=== PATIENT | female | born 1945 | race Caucasian/White ===

== ENCOUNTER 2017-11-15 19:27 | Inpatient (IN) | payer MEDICARE ==
[~2017-11-15] VITALS: Ht 157.5 cm; Wt 70.0 kg
[~2017-11-15 19:27] MED LIST: IBUP600T26 PO; METO25 PO; PRAV20 PO; TIMO0.5S7
[2017-11-15 19:37] VITALS: BP 149/63; PULSE 66; RESP 18; TEMP 98.4; O2SAT 99
[2017-11-15] MEDS ORDERED: PRAV20TA2 PO (19:45)
[2017-11-15] MEDS ORDERED: TIMO0.5S30 EACH EYE (19:45)
[2017-11-15] MEDS ORDERED: COQ-50CA2 PO (19:45)
[2017-11-15] MEDS ORDERED: METO25TA3 PO (19:45)
[2017-11-15] MEDS ORDERED: HYDROmorphone HCL PF 2 MG/ML VIAL IV PUSH ONE (19:45)
[2017-11-15] MEDS ORDERED: ONDANSETRON ODT 4 MG TAB PO ONE (19:45)
--- NOTE | 2017-11-15 20:41 | RADRPT ---
EXAM DATE: 11/15/2017 8:31 PM EDT AGE/SEX: 72 years / Female INDICATIONS: Left medial foot pain after fall. CLINICAL DATA: This is the patient's initial encounter. Patient reports that signs and symptoms have been present for 1 day and indicates a pain score of 7/10. MEDICAL/SURGICAL HISTORY: None. None. COMPARISON: No prior exams available for comparison. FINDINGS: There is a minimally displaced fracture through the base of the fifth metatarsal. No dislocation. No other fractures identified. CONCLUSION: Minimally displaced fracture through the base of the fifth metatarsal. Electronically signed by: Kenny Barry MD 11/15/2017 8:39 PM EDT
--- NOTE | 2017-11-15 20:42 | RADRPT ---
EXAM DATE: 11/15/2017 8:32 PM EDT AGE/SEX: 72 years / Female INDICATIONS: Right anterior knee pain after fall. CLINICAL DATA: This is the patient's initial encounter. Patient reports that signs and symptoms have been present for 1 day and indicates a pain score of 10/10. MEDICAL/SURGICAL HISTORY: None. None. COMPARISON: No prior exams available for comparison. FINDINGS: There is a comminuted fracture of the upper patella with mild displacement. Positive knee joint effus ion. No other fractures identified. CONCLUSION: Comminuted patellar fracture with joint effusion. Electronically signed by: Kenny Barry MD 11/15/2017 8:40 PM EDT
--- NOTE | 2017-11-15 21:02 | PD ---
HPI Chief Complaint: Fall Time Seen by Provider: 19:39 Travel History International Travel<30 days: No Contact w/Intl Traveler<30days: No Traveled to known affect area: No History of Present Illness HPI Is a 72-year-old woman presents emerged department after trip and fall. States she tripped over a parking curb and fell onto her right knee. She is severe pain in her right knee and some pain in her left foot as well. Denies hitting her head. No neck pain. She otherwise has been feeling generally well and healthy. She is a history of SVT, is on metoprolol. She is a history of hyperlipidemia. Otherwise has been feeling generally well and healthy. No other complaints. History Past Medical History Narrative Medical SVT, metoprolol Hyperlipidemia Tetanus Vaccination: < 5 Years Influenza Vaccination: Yes Menopausal: Yes Social History Alcohol Use: Yes (WINE 4 TIMES A WEEK) Tobacco Use: No Allergies-Medications (Allergen,Severity, Reaction): Coded Allergies: codeine (Unverified Allergy, Severe, RAPID PULSE, 01/12/17) latex (Unverified Allergy, Severe, Hives, 01/12/17) morphine (Unverified Allergy, Unknown, 01/12/17) Reported Meds & Prescriptions Reported Meds & Active Scripts Active Reported Coq-10 (Coenzyme Q10 (Ubidecarenone)) 50 Mg Cap 100 Mg PO Timolol Opth Drops 0.5 % Soln 1 Drop EACH EYE BID Metoprolol Tartrate 25 Mg Tab 25 Mg PO BID Pravastatin 20 Mg Tab 20 Mg PO DAILY Review of Systems Except as stated in HPI: all other systems reviewed are Neg Physical Exam Narrative GENERAL: Well-appearing 72-year-old woman, no acute distress. SKIN: Warm and dry. HEENT: No evidence of trauma. Normocephalic. Neck: Full range of motion. No tenderness. CARDIOVASCULAR: Warm and well perfused. RESPIRATORY: Normal rate and effort. MUSCULOSKELETAL: Examination of the right lower extremity reveals pain and tenderness over the anterior right knee. Pain with any range of motion. A little bit of pain laterally on the knee. Some swelling on the anterior knee, no definite effusion. Distally she is neurovascularly intact. Focused examination the left lower extremity reveals a little bit tenderness in the lateral no significant ecchymosis swelling bruising or deformity there. NEUROLOGICAL: Awake and alert. No gross deficits. Data Data Last Documented VS Vital Signs Date Time Temp Pulse Resp B/P (MAP) Pulse Ox O2 Delivery O2 Flow Rate FiO2 11/15/17 19:37 98.4 66 18 149/63 (91) 99 Orders Orders Foot, Complete ([id number]) (11/15/17 ) Hydromorphone Pf Inj (Dilaudid Pf Inj) (11/15/17 19:45) Ondansetron Odt (Zofran Odt) (11/15/17 19:45) Knee, Ltd (1 Or 2vws) (11/15/17 ) Complete Blood Count With Diff (11/15/17 21:10) Comprehensive Metabolic Panel (11/15/17 21:10) Iv Access Insert/Monitor (11/15/17 21:10) Admit Order (Ed Use Only) (11/15/17 ) Consult Orthopedic (11/15/17 ) [facility] Medical Decision Making Medical Screen Exam Complete: Yes Emergency Medical Condition: Yes Interpretation(s) X-ray right knee: Comminuted patellar fracture with some effusion. X-ray left foot: Proximal base of the fifth metatarsal fracture. Differential Diagnosis Fracture, contusion, strain or sprain, other Narrative Course Medical decision making 72-year-old woman who presents to the emergency department complaining of pain in the right knee after a fall. She is a lot of deformity and tenderness or swelling there. Concern for fracture. A little bit tenderness in the foot. X- ray shows a fracture the base of the fifth metatarsal, as well as a fracture of the patella is pretty comminuted. She is unable to hold the ankle up off the bed against gravity, possibly due to pain, possibly due to disruption. Physician Communication Physician Communication Spoke with Dr. Elder RODRÍGUEZ, will consult on patient. N.p.o. after midnight. Spoke with Dr. Cueto, will admit patient. Diagnosis Primary Impression: Fracture of fifth metatarsal bone of right foot Qualified Codes: S92.354A - Nondisplaced fracture of fifth metatarsal bone, right foot, initial encounter for closed fracture Additional Impression: Comminuted fracture of right patella Admitting Information Admitting Physician Requests: Admit Joseph Jackson MD Nov 15, 2017 21:02
[2017-11-15 22:02] LABS: AUTOMATED NEUTROPHIL # 9.8 TH/MM3 (1.8-7.7); BASOPHIL % 0.2 % (0.0-2.0); EOSINOPHIL # 0.1 TH/MM3 (0-0.4); EOSINOPHIL % 0.5 % (0.0-4.0); HEMATOCRIT 40.4 % (35.0-46.0); HEMOGLOBIN 13.5 GM/DL (11.6-15.3); LYMPH % 15.7 % (9.0-44.0); MEAN CELL VOLUME 88.9 FL (80.0-100.0); MEAN CORPUSCULAR HEMOGLOBIN 29.7 PG (27.0-34.0); MEAN CORPUSCULAR HGB CONC 33.4 % (32.0-36.0); MEAN PLATELET VOLUME 8.3 FL (7.0-11.0); MONO % 6.3 % (0.0-8.0); MONOCYTE # 0.8 TH/MM3 (0-0.9); NEUT % 77.3 % (16.0-70.0); PLATELET COUNT 282 TH/MM3 (150-450); RED BLOOD COUNT 4.55 MIL/MM3 (4.00-5.30); RED CELL DISTRIBUTION WIDTH 13.2 % (11.6-17.2); WHITE BLOOD COUNT 12.6 TH/MM3 (4.0-11.0)
--- NOTE | 2017-11-15 22:13 | HHI.HP ---
HPI Service [facility] Hospitalists Primary Care Physician Tahir Monahan MD Admission Diagnosis Comminuted patellar fracture, metatarsal fracture Chief Complaint: fall with fracture Travel History International Travel<30 Days: No Contact w/Intl Traveler <30 Da: No Traveled to Known Affected Are: No History of Present Illness Is a 72-year-old woman presents emerged department after trip and fall. States she tripped over a parking curb and fell onto her right knee. She is severe pain in her right knee and some pain in her left foot as well. Denies hitting her head. No neck pain. She otherwise has been feeling generally well and healthy. She is a history of SVT, is on metoprolol. She is a history of hyperlipidemia. Otherwise has been feeling generally well and healthy. No other complaints . Xrays show rt patella fracture and 5th metatarsal fracture admit. Review of Systems Musculoskeletal: COMPLAINS OF: Joint pain Past Family Social History Past Medical History SVT ,hyperlipidemia Reported Medications metoprolol 25 bid,pravachol eye drops coq 10 Allergies: Coded Allergies: codeine (Unverified Allergy, Severe, RAPID PULSE, 01/12/17) latex (Unverified Allergy, Severe, Hives, 01/12/17) morphine (Unverified Allergy, Unknown, 01/12/17) Social History NS occasional etoh Physical Exam Vital Signs Vital Signs Date Time Temp Pulse Resp B/P (MAP) Pulse Ox O2 Delivery O2 Flow Rate FiO2 11/15/17 19:37 98.4 66 18 149/63 (91) 99 Physical Exam GENERAL: This is a well-nourished, well-developed patient, in no apparent distress. SKIN: No rashes, ecchymoses or lesions. Cool and dry. HEAD: Atraumatic. Normocephalic. No temporal or scalp tenderness. EYES: Pupils equal round and reactive. Extraocular motions intact. No scleral icterus. No injection or drainage. ENT: Nose without bleeding, purulent drainage or septal hematoma. Throat without erythema, tonsillar hypertrophy or exudate. Uvula midline. Airway patent. NECK: Trachea midline. No JVD or lymphadenopathy. Supple, nontender, no meningeal signs. CARDIOVASCULAR: Regular rate and rhythm without murmurs, gallops, or rubs. RESPIRATORY: Clear to auscultation. Breath sounds equal bilaterally. No wheezes , rales, or rhonchi. GASTROINTESTINAL: Abdomen soft, non-tender, nondistended. No hepato-splenomegaly , or palpable masses. No guarding. MUSCULOSKELETAL: Extremities without clubbing, cyanosis, or edema. Pain and tenderness anterior rt knee with movement and pain rt foot NEUROLOGICAL: Awake and alert. Cranial nerves II through XII intact. Motor and sensory grossly within normal limits. Five out of 5 muscle strength in all muscle groups. Normal speech. Laboratory Laboratory Tests Test 11/15/17 21:55 White Blood Count 12.6 Red Blood Count 4.55 Hemoglobin 13.5 Hematocrit 40.4 Mean Corpuscular Volume 88.9 Mean Corpuscular Hemoglobin 29.7 Mean Corpuscular Hemoglobin Concent 33.4 Red Cell Distribution Width 13.2 Platelet Count 282 Mean Platelet Volume 8.3 Neutrophils (%) (Auto) 77.3 Lymphocytes (%) (Auto) 15.7 Monocytes (%) (Auto) 6.3 Eosinophils (%) (Auto) 0.5 Basophils (%) (Auto) 0.2 Neutrophils # (Auto) 9.8 Lymphocytes # (Auto) 2.0 Monocytes # (Auto) 0.8 Eosinophils # (Auto) 0.1 Basophils # (Auto) 0.0 CBC Comment DIFF FINAL Differential Comment Result Diagram: 11/15/175 Imaging Last 24 hours Impressions Knee X-Ray 11/15/17 0000 Signed Impressions: CONCLUSION: Comminuted patellar fracture with joint effusion. Foot X-Ray 11/15/17 0000 Signed Impressions: CONCLUSION: Minimally displaced fracture through the base of the fifth metatarsal. Caprini VTE Risk Assessment Caprini VTE Risk Assessment: No/Low Risk (score <= 1) Caprini Risk Assessment Model Point Value = 1 Point Value = 2 Point Value = 3 Point Value = 5 Age 41-60 Minor surgery BMI > 25 kg/m2 Swollen legs Varicose veins or History of unexplained or recurrent spontaneous Oral contraceptives or hormone replacement Sepsis (< 1 month) Serious lung disease, including pneumonia (< 1 month) Abnormal pulmonary function Acute myocardial infarction Congestive heart failure (< 1 month) History of inflammatory bowel disease Medical patient at bed rest Age 61-74 Arthroscopic surgery Major open surgery (> 45 min) Laparoscopic surgery (> 45 min) Malignancy Confined to bed (> 72 hours) Immobilizing plaster cast Central venous access Age >= 75 History of VTE Family history of VTE Factor V Leiden Prothrombin [id number] Lupus anticoagulant Anticardiolipin antibodies Elevated serum homocysteine Heparin-induced thrombocytopenia Other congenital or acquired thrombophilia Stroke (< 1 month) Elective arthroplasty Hip, pelvis, or leg fracture Acute spinal cord injury (< 1 month) Prophylaxis Regimen Total Risk Factor Score Risk Level Prophylaxis Regimen 0-1 Low Early ambulation 2 Moderate Order ONE of the following: *Sequential Compression Device (SCD) *Heparin 5000 units SQ BID 3-4 Higher Order ONE of the following medications: *Heparin 5000 units SQ TID *Enoxaparin/Lovenox 40 mg SQ daily (WT < 150 kg, CrCl > 30 mL/min) *Enoxaparin/Lovenox 30 mg SQ daily (WT < 150 kg, CrCl > 10-29 mL/min) *Enoxaparin/Lovenox 30 mg SQ BID (WT < 150 kg, CrCl > 30 mL/min) AND/OR *Sequential Compression Device (SCD) 5 or more Highest Order ONE of the following medications: *Heparin 5000 units SQ TID (Preferred with Epidurals) *Enoxaparin/Lovenox 40 mg SQ daily (WT < 150 kg, CrCl > 30 mL/min) *Enoxaparin/Lovenox 30 mg SQ daily (WT < 150 kg, CrCl > 10-29 mL/min) *Enoxaparin/Lovenox 30 mg SQ BID (WT < 150 kg, CrCl > 30 mL/min) AND *Sequential Compression Device (SCD) Assessment and Plan Problem List: (1) Comminuted fracture of right patella ICD Codes: S82.041A - Displaced comminuted fracture of right patella, initial encounter for closed fracture Status: Acute Plan: admit pain meds consult ortho (2) Fracture of fifth metatarsal bone of right foot ICD Codes: S92.351A - Displaced fracture of fifth metatarsal bone, right foot, initial encounter for closed fracture Status: Acute Plan: ortho consulted (3) Hyperlipemia ICD Codes: E78.5 - Hyperlipidemia, unspecified Plan: continue statin (4) SVT (supraventricular tachycardia) ICD Codes: I47.1 - Supraventricular tachycardia Plan: continue metoprolol Assessment and Plan further plan as case develops Code Status full Discussed Condition With patient Physician Certification 2 Midnight Certification Type: Admission for Inpatient Services Order for Inpatient Services The services are ordered in accordance with Medicare regulations or non- Medicare payer requirements, as applicable. In the case of services not specified as inpatient-only, they are appropriately provided as inpatient services in accordance with the 2-midnight benchmark. Estimated LOS (days): 3 3 days is the estimated time the patient will need to remain in the hospital, assuming treatment plan goals are met and no additional complications. Post-Hospital Plan: Not yet determined Problem Qualifiers (1) Fracture of fifth metatarsal bone of right foot: Qualified Codes: S92.354A - Nondisplaced fracture of fifth metatarsal bone, right foot, initial encounter for closed fracture Robert Cueto MD Nov 15, 2017 22:13
[2017-11-15] MEDS ORDERED: MAGNESIUM HYDROXIDE SUSP 30 ML CUP PO PRN (22:15)
[2017-11-15] MEDS ORDERED: MORPHINE SULFATE 2 MG/ML SYRINGE IV PUSH PRN (22:15)
[2017-11-15] MEDS ORDERED: NALOXONE HCL 0.4 MG/ML AMP IV PUSH PRN (22:15)
[2017-11-15] MEDS ORDERED: LACTULOSE SYRUP 20 GM/30 ML CUP PO PRN (22:15)
[2017-11-15] MEDS ORDERED: SENNOSIDES 8.6 MG TAB PO PRN (22:15)
[2017-11-15] MEDS ORDERED: BISACODYL 10 MG SUPP RECTAL PRN (22:15)
[2017-11-15] MEDS ORDERED: SODIUM CHLORIDE 0.9% FLUSH 10 ML FLUSH IV FLUSH PRN (22:15)
[2017-11-15 22:24] LABS: ALBUMIN 3.8 GM/DL (3.4-5.0); ALT (GPT) 40 U/L (10-53); AST (GOT) 58 U/L (15-37); BICARBONATE 26.1 MEQ/L (21.0-32.0); BLOOD UREA NITROGEN 20 MG/DL (7-18); CALCIUM 9.4 MG/DL (8.5-10.1); CHLORIDE 106 MEQ/L (98-107); CREATININE 0.93 MG/DL (0.50-1.00); GLOMERULAR FILTRATION RATE 59 ML/MIN (>89); GLUCOSE,RANDOM 109 MG/DL (74-106); SODIUM (NA) 141 MEQ/L (136-145)
[2017-11-15 22:26] LABS: ALKALINE PHOSPHATASE 85 U/L (45-117); TOTAL BILIRUBIN ADULT 0.4 MG/DL (0.2-1.0); TOTAL PROTEIN 6.9 GM/DL (6.4-8.2)
[2017-11-15] MEDS ORDERED: HYDROmorphone HCL PF 1 MG/ML VIAL IV PUSH PRN (22:30)
[2017-11-15 22:32] VITALS: BP 123/58; PULSE 74; RESP 16; O2SAT 98
[2017-11-16] VITALS (9 sets, daily range): BP systolic 106–128; BP diastolic 53–59; PULSE 62–81; RESP 16–18; TEMP 97.5–98.7; O2SAT 95–100
[2017-11-16] MEDS: HYDROmorphone HCL PF 2 MG/ML VIAL IV PUSH PRN ×5 (00:23→23:22)
--- NOTE | 2017-11-16 08:04 | HHI.PR ---
Subjective Remarks Pt reports that her pain is controlled currently She notes that she has not urinated since 1700 yesterday evening Denies any nausea/vomiting Objective Vitals Vital Signs Date Time Temp Pulse Resp B/P (MAP) Pulse Ox O2 Delivery O2 Flow Rate FiO2 11/16/17 07:23 65 11/16/17 04:23 65 11/16/17 03:52 98.2 81 16 116/58 (77) 95 11/16/17 00:17 98.7 74 16 128/59 (82) 100 11/15/17 23:36 11/15/17 22:32 74 16 123/58 (79) 98 Room Air 11/15/17 19:37 98.4 66 18 149/63 (91) 99 Result Diagram: 11/15/17215411/15/172154 Other Results Laboratory Tests Test 11/15/17 21:55 White Blood Count 12.6 TH/MM3 Red Blood Count 4.55 MIL/MM3 Hemoglobin 13.5 GM/DL Hematocrit 40.4 % Mean Corpuscular Volume 88.9 FL Mean Corpuscular Hemoglobin 29.7 PG Mean Corpuscular Hemoglobin Concent 33.4 % Red Cell Distribution Width 13.2 % Platelet Count 282 TH/MM3 Mean Platelet Volume 8.3 FL Neutrophils (%) (Auto) 77.3 % Lymphocytes (%) (Auto) 15.7 % Monocytes (%) (Auto) 6.3 % Eosinophils (%) (Auto) 0.5 % Basophils (%) (Auto) 0.2 % Neutrophils # (Auto) 9.8 TH/MM3 Lymphocytes # (Auto) 2.0 TH/MM3 Monocytes # (Auto) 0.8 TH/MM3 Eosinophils # (Auto) 0.1 TH/MM3 Basophils # (Auto) 0.0 TH/MM3 CBC Comment DIFF FINAL Differential Comment Blood Urea Nitrogen 20 MG/DL Creatinine 0.93 MG/DL Random Glucose 109 MG/DL Total Protein 6.9 GM/DL Albumin 3.8 GM/DL Calcium Level 9.4 MG/DL Alkaline Phosphatase 85 U/L Aspartate Amino Transf (AST/SGOT) 58 U/L Alanine Aminotransferase (ALT/SGPT) 40 U/L Total Bilirubin 0.4 MG/DL Sodium Level 141 MEQ/L Potassium Level 3.8 MEQ/L Chloride Level 106 MEQ/L Carbon Dioxide Level 26.1 MEQ/L Anion Gap 9 MEQ/L Estimat Glomerular Filtration Rate 59 ML/MIN Imaging Last 24 hours Impressions Knee X-Ray 11/15/17 0000 Signed Impressions: CONCLUSION: Comminuted patellar fracture with joint effusion. Foot X-Ray 11/15/17 0000 Signed Impressions: CONCLUSION: Minimally displaced fracture through the base of the fifth metatarsal. Objective Remarks General: NAD, AAOx3 Chest: CTA Cardiac: Regular Abd: +BS, soft ND, suprapubic distension and tenderness Ext: RLE knee immobilizer in place, no swelling A/P Problem List: (1) Comminuted fracture of right patella ICD Codes: S82.041A - Displaced comminuted fracture of right patella, initial encounter for closed fracture Status: Acute Plan: Comminuted right patellar fracture Left foot 5th metatarsal fracture - Pt is a 72 y/o female with SVT, Hyperlipidemia, GERD, gastroparesis, and fibromyalgia who presented to the ED after trip and fall. She had tripped over a parking curb and fell onto her right knee. - Imaging studies at admission revealed a right comminuted patellar fracture with joint effusion and a left foot minimally displaced fracture through the base of the fifth metatarsal. - Ortho was consulted at admission - Pt is planned for surgical intervention this afternoon - NPO - IVF - Bladder scan and if retaining then place [facility] cath - Pain control with Dilaudid IV - Constipation precautions - Supportive care (2) Fracture of fifth metatarsal bone of left foot ICD Codes: S92.352A - Displaced fracture of fifth metatarsal bone, left foot, initial encounter for closed fracture Status: Acute Plan: - See above (3) Hyperlipemia ICD Codes: E78.5 - Hyperlipidemia, unspecified Status: Chronic Plan: - Statin continued at admission (4) SVT (supraventricular tachycardia) ICD Codes: I47.1 - Supraventricular tachycardia Status: Chronic Plan: - Metoprolol 25mg po BID continued - equipment monitor phototypesetting Assessment and Plan Patient examined. Assessment and plan formulated with Blanka Walker PA-C. I agree with the above. Blanka Walker Nov 16, 2017 08:04 Diogo Aguirre DO Nov 17, 2017 13:13
[2017-11-16] MEDS ORDERED: LACTATED RINGER'S 1000 ML IV PRN (08:30)
[2017-11-16] MEDS ORDERED: SODIUM CHLORID 0.9% 500 ML IV PRN (08:30)
[2017-11-16] MEDS ORDERED: INSULIN HUMAN REGULAR 1,000 UNITS/10 ML VIAL SQ PRN (08:30)
[2017-11-16] MEDS ORDERED: METOPROLOL TARTRATE 25 MG TAB PO PRN (08:30)
[2017-11-16] MEDS ORDERED: POVIDONE IODINE 5% (ANTISEPSIS KIT) 4 APPLICATIONS EACH NARE PRN (08:30)
[2017-11-16] MEDS ORDERED: CHLORHEXIDINE GLUCONATE 2 % 1 PACK (2 CLOTHS) TOPICAL PRN (08:30)
[2017-11-16] MEDS: TIMOLOL MALEATE 0.5% OPHT SOLN 5 ML BTL EACH EYE SCH ×2 (08:47→21:00)
[2017-11-16] MEDS: PRAVASTATIN SOD 20 MG TAB PO SCH (08:48)
[2017-11-16] MEDS: DOCUSATE SODIUM 50 MG/SENNA 8.6 MG TAB PO SCH ×2 (08:48→21:41)
[2017-11-16] MEDS: METOPROLOL TARTRATE 25 MG TAB PO SCH ×2 (08:48→21:41)
[2017-11-16] MEDS ORDERED: VANCOMYCIN HCL 1000 MG VIAL ONE (09:15)
[2017-11-16] MEDS ORDERED: SODIUM CHLOR 0.9% 250 ML INJ 250 ML ONE (09:15)
[2017-11-16] MEDS ORDERED: ceFAZolin INJ 1,000 MG VIAL ONE (09:15)
[2017-11-16] MEDS ORDERED: GENTAMICIN SULFATE 80 MG/2 ML VIAL ONE (09:15)
[2017-11-16] MEDS ORDERED: VITA2000 PO (10:15)
[2017-11-16] MEDS ORDERED: VITA500012 PO (10:15)
[2017-11-16] MEDS ORDERED: HYDR-3580 PO (10:15)
[2017-11-16] MEDS ORDERED: CALCTAB19 PO (10:15)
[2017-11-16] MEDS ORDERED: ONDANSETRON HCL 4 MG/2 ML VIAL IVP PRN (11:30)
[2017-11-16] MEDS ORDERED: Post-op Orders (for Pharmacy) XX ONE (11:30)
[2017-11-16] MEDS ORDERED: diphenhydrAMINE HCL 25 MG CAP PO PRN (11:30)
--- NOTE | 2017-11-16 11:32 | PD.OP ---
cc: Russel Sparks MD Operative Report Date of Surgery: Nov 16, 2017 Preoperative Diagnosis: Comminuted right patella fracture Postoperative Diagnosis: Procedure: Open reduction internal fixation right patella Anesthesia: General Surgeon: Russel Sparks Epidemiology Internship(s): VIVIANA Rojas PA-C The surgical procedure was assisted by my physician veterinarian assistant. My P.A. presence was necessary throughout this case for the manipulation and positioning of the surgical extremity. My P.A. was assisting me throughout the duration of this procedure. The skill set of a physician veterinarian assistant was medically necessary to complete this procedure. During the surgical case the neurosurgical nurse practitioner was working at the back table and the physician veterinarian assistant was directly assisting me. Operation and Findings: Implants used: Synthes Details of procedure: Carolee had an injury resulting in displaced right patella fracture. Informed consent was confirmed preoperatively and informed consent was obtained. I had a detailed discussion with the patient regarding the risks and benefits of surgery. Patient was brought to the operating room and placed on the OR table. IV sedation and GETA were administered by anesthesiologist and IV antibiotics were given prior to incision. A timeout procedure was performed. The operative leg was prepped with alcohol followed by Hibiclens and draped in the usual sterile fashion. The procedure began with a 4-inch incision over the anterior knee. Subcutaneous tissue was dissected with Bovie. At this point the fracture site was visualized. Fracture was now cleaned with curettes. At this point attention was turned to reduction. The inferior pole of the patella was reduced to the superior pole of the patella. Fracture keyed into anatomic alignment. Multiplanar fluoroscopy confirmed excellent alignment of fracture. Two guide pins for the Synthes 4.0 cannulated screws were now placed from inferior to superior. There was a third lateral fragment. This was also reduced into anatomic alignment with a fracture tenaculum. An additional guidepin was placed from lateral to medial. Fluoroscopy was used to confirm appropriate guidepin placement. Screw lengths were measured. Cannulated drill was now placed over the guide pins. 3 Appropriate length screws were now placed , good compression was applied. An 18 gauge wire was now passed through the cannulated screws in a [id number] fashion. A tension band type construct was now created. The wires were tensioned appropriately. Fluoroscopy confirmed well-placed hardware with well-aligned fracture. The retinaculum was now closed with #1 Vicryl, subcutaneous tissue was closed with 3-0 Vicryl and skin was closed with charmaine. Sterile dressings were applied. The patient was transferred to recovery in stable condition. She was placed into a knee immobilizer. Needle and sponge counts were correct. Russel Sparks MD Nov 16, 2017 11:32
[2017-11-16] MEDS ORDERED: DO NOT ADM ANY ANTICOAGULANT DRUGS PRN (11:44)
[2017-11-16] MEDS: SODIUM CHLORIDE 0.9% FLUSH 10 ML FLUSH IV FLUSH SCH ×2 (11:45→21:00)
[2017-11-16] MEDS ORDERED: MIDAZOLAM HCL 2 MG/2 ML VIAL ONE (11:49)
[2017-11-16] MEDS ORDERED: *MEPERIDINE 25 MG INJ VIAL PERIprocedural Use ONLY ONE (11:58)
[2017-11-16] MEDS ORDERED: ePHEDrine/NS 25 MG/5 ML SYRINGE IV ONE (12:00)
[2017-11-16] MEDS ORDERED: LIDOCAINE HCL 1% PF 5 ML SYRINGE OTHER ONE (12:00)
[2017-11-16] MEDS ORDERED: DEXAMETHASONE SOD PHOS 4 MG/ML VIAL IV ONE (12:00)
[2017-11-16] MEDS ORDERED: ONDANSETRON HCL 4 MG/2 ML VIAL IV PUSH ONE (12:00)
[2017-11-16] MEDS ORDERED: PROPOFOL 200 MG/20 ML AMP IV ONE (12:00)
[2017-11-16] MEDS ORDERED: PHENYLEPH/NS 1000 MCG/10 ML SYR IV ONE (12:00)
--- NOTE | 2017-11-16 12:11 | MB ---
cc: Russel Stephenson MD DATE: 11/16/2017 REASON FOR CONSULTATION: Comminuted right patellar fracture, minimally displaced left fifth metatarsal fracture. CONSULTING PHYSICIAN: Dr. Aguirre HISTORY OF PRESENT ILLNESS: Carolee is a 72-year-old female who was walking. She tripped on uneven pavement. She landed mostly on her right leg. She had immediate right knee pain. She also had left foot pain. She denies dizziness, syncope or loss of consciousness. She describes a mechanical fall. Pain is worse with movement and is improved with rest. She is currently awake and alert on the orthopedic floor. PAST MEDICAL HISTORY/ILLNESSES: Illnesses, high cholesterol and a history of SVT. MEDICATIONS: 1. Metoprolol. 2. Pravachol. 3. Eyedrops. ALLERGIES: CODEINE, LATEX AND MORPHINE. SOCIAL HISTORY: The patient drinks approximately 4 glasses of wine a week. She denies tobacco use. She denies drug use. FAMILY HISTORY: Noncontributory. She denies any familial medial medical problems. ALLERGIES: CODEINE, LASIX AND MORPHINE. REVIEW OF SYSTEMS: 10 point review of systems was performed and is negative. She denies headache, visual changes, neck pain, chest pain, shortness of breath, abdominal pain, nausea, vomiting, recent weight loss, fevers or chills, numbness of the extremities weakness, bowel or bladder incontinence, or recent weight loss. She complains of right knee pain and left foot pain. LABORATORY DATA: The patient has a white blood cell count of 12.6, hematocrit of 40.4, platelet count of 282. Potassium 3.8, creatinine 0.93. IMAGING: X-rays of right knee were reviewed. X-rays reveal a comminuted displaced right patellar fracture. X-rays of the left foot reveal a minimally displaced proximal left fifth metatarsal fracture. PHYSICAL EXAMINATION: GENERAL: On exam, patient is a pleasant 72-year-old. She is is awake and alert. She appears developed and well nourished. She is in no acute distress. VITAL SIGNS: Temperature 98.1, pulse 67, respirations 18, blood pressure 109/54, O2 saturation 98% on room air. HEAD: The patient is normocephalic. EYES: Pupils are equal. NECK: Soft, nontender. The trachea is midline. ABDOMEN: Soft, nontender, nondistended. EXTREMITIES: Examination of bilateral upper extremities reveals no significant pain with shoulder, elbow and wrist motion. She has intact sensation in all fingers. She has good capillary refill in all fingers. Transition Of Care Specialist strength is +5. Examination of the left leg reveals no pain with hip, knee or ankle motion. Skin is intact. She is tender to palpation over the proximal fifth metatarsal. She has no tenderness over the remainder of the mid foot. Dorsalis pedis pulse is palpable. Examination of the right leg reveals no pain with hip or ankle motion. Sensation is intact to the right foot. Dorsalis pedis pulses palpable. Examination of the right knee reveals a small abrasion over the inferior medial aspect of the knee. She is tender to palpation over the patella. Her knee is stable to varus and valgus stress. She has pain with any motion. IMPRESSION: 1. History of supraventricular tachycardia. 2. Displaced right patellar fracture. 3. Nondisplaced left foot fifth metatarsal fracture. 4. Possible osteoporosis. PLAN: Treatment options were discussed with the patient. At this point, I would recommend nonsurgical treatment of her left foot. She may weight bear as tolerated on her heel. She should limit her weight on the front of her foot. I would recommend surgical treatment for her right patella. I would recommend open reduction, internal fixation. The risks of surgery include bleeding, infection, injuries to arteries, nerves and blood vessels, nonunion, malunion, painful hardware, arthritis, knee pain, as well as medical complications including blood clot, stroke, heart attack and . All questions were answered. I will plan on surgery today. Postoperative, I will place the patient on calcium and vitamin D, as well as appropriate DVT prophylaxis. Physical therapy will be consulted. All questions were answered. A mid-level provider in my office, nurse practitioner or PA, may see this patient on a follow-up basis and continue to implement the objective of this plan including: Starting or adjusting medications, injections of muscle, tendon, bursa or joints, cast application, orthotic or brace application, physical therapy, further radiographic studies including x-ray, MRI, CT, ultrasounds or bone scan, vascular studies, neurologic studies, or other specialist consultations, and proceeding with surgical management as appropriate. MD MISSY Houser/SARA , 11:37 AM , 12:09 PM KHADIJAH
[2017-11-16] MEDS: LACTATED RINGER'S 1000 ML INJ 1,000 ML IV SCH ×2 (12:30→23:59)
[2017-11-16] MEDS: CALCIUM/VITAMIN D 250 MG/125 U TAB PO SCH ×2 (13:00→18:00)
[2017-11-16] MEDS ORDERED: NEOMYCIN/POLYMYXIN/BACITRACIN OINT 15 GM TUBE ONE (15:25)
--- NOTE | 2017-11-16 15:31 | RADRPT ---
EXAM DATE: 11/16/2017 3:22 PM EDT AGE/SEX: 72 years / Female INDICATIONS: ORIF right patella fracture. CLINICAL DATA: This is the patient's subsequent encounter. Patient reports that signs and symptoms h ave been present for 1 day and indicates a pain score of Nonresponsive. MEDICAL/SURGICAL HISTORY: Non-responsive. Non-responsive. COMPARISON: No prior exams available for comparison. FINDINGS: Status post internal fixation of the patella. There is good position and alignment of the bony struct ures. The hardware is grossly intact. Postsurgical changes are seen in the soft tissues. CONCLUSION: Good position and alignment on this postoperative view. Electronically signed by: Augusto Adler MD 11/16/2017 3:30 PM EDT
--- NOTE | 2017-11-16 17:08 | EKG ---
Date Performed: 11/16/2017 Time Performed: 07:57:19 PTAGE: 72 years EKG: Sinus rhythm WITH SINUS ARRHYTHMIA POSSIBLE RIGHT VENTRICULAR CONDUCTION DELAY BORDERLINE ECG PREVIOUS TRACING :07/09/2012 @06.58 Since the previous tracing, no significant change noted DOCTOR: Spring Carter Interpretating Date/Time 11/16/2017 17:04:05
[2017-11-16] MEDS: ceFAZolin 2 GM PREMIX 50 ML IV SCH (18:33)
[2017-11-17] MEDS: ceFAZolin 2 GM PREMIX 50 ML IV SCH ×2 (01:41→08:27)
[2017-11-17 04:25] VITALS: BP 104/55; PULSE 68; RESP 16; TEMP 98.2; O2SAT 99
[2017-11-17] MEDS: ACETAMINOPHEN/HYDROcodone 325 MG/7.5 MG TAB PO PRN ×4 (04:43→17:01)
--- NOTE | 2017-11-17 06:35 | PD.ORT.PN ---
Subjective Subjective Remarks POD 1 s/p ORIF right patella doing well. reports pain but controlled. Objective Vitals Vital Signs Date Time Temp Pulse Resp B/P (MAP) Pulse Ox O2 Delivery O2 Flow Rate FiO2 11/17/17 04:25 98.2 68 16 104/55 (71) 99 11/16/17 23:15 98.2 72 16 106/56 (73) 99 11/16/17 20:02 62 11/16/17 20:00 98.3 69 16 109/53 (71) 99 11/16/17 19:50 Nasal Cannula 3.00 11/16/17 16:00 97.5 73 16 116/58 (77) 99 11/16/17 15:00 70 16 117/56 (76) 97 Nasal Cannula 2 11/16/17 14:00 70 16 119/55 (76) 99 Nasal Cannula 2 11/16/17 13:30 70 16 120/55 (76) 99 Nasal Cannula 2 11/16/17 13:00 70 16 137/58 (84) 99 Nasal Cannula 2 11/16/17 12:45 70 16 113/61 (78) 98 Nasal Cannula 2 11/16/17 12:30 70 16 128/55 (79) 99 Nasal Cannula 2 11/16/17 12:15 72 16 125/60 (81) 100 Nasal Cannula 2 11/16/17 12:00 84 16 138/65 (89) 97 Nasal Cannula 2 11/16/17 11:45 74 16 128/97 (107) 100 Nasal Cannula 2 11/16/17 11:42 97.5 72 16 125/95 (105) 100 Nasal Cannula 2 11/16/17 08:23 98.1 67 18 109/54 (72) 98 11/16/17 07:23 65 I/O 11/16/17 11/16/17 11/16/17 11/17/17 11/17/17 11/17/17 07:00 15:00 23:00 07:00 15:00 23:00 Intake Total 600 ml 720 ml Output Total 250 ml 750 ml Balance 350 ml -30 ml Intake Oral 720 ml IV Total 200 ml Other 400 ml Output Urine Total 150 ml 750 ml Estimated Blood Loss 100 ml # Bowel Movements 0 Result Diagram: 11/15/17215411/15/172154 Objective Remarks RLE: Dressings clean and dry. intactl NVI. +CKS Assessment & Plan Assessment and Plan 1) Right Patella Fx s/p ORIF - POD 1 -up to 50lbs wt with knee brace on -maintain brace at all times -no ROM, quad sets, leg lifts, strengthening -daily dressing changes POD 2 -CM for SNF placement -f/u with [facility] or [facility] in 2 weeks Titi Briggs PA/[employer]drin[employer] Weaver PA Nov 17, 2017 06:35
[2017-11-17 07:18] LABS: AUTOMATED NEUTROPHIL # 8.6 TH/MM3 (1.8-7.7); BASOPHIL % 0.2 % (0.0-2.0); EOSINOPHIL % 0.3 % (0.0-4.0); HEMATOCRIT 36.7 % (35.0-46.0); HEMOGLOBIN 12.1 GM/DL (11.6-15.3); LYMPH % 18.6 % (9.0-44.0); LYMPHOCYTE # 2.2 TH/MM3 (1.0-4.8); MEAN CELL VOLUME 89.8 FL (80.0-100.0); MEAN CORPUSCULAR HEMOGLOBIN 29.7 PG (27.0-34.0); MEAN CORPUSCULAR HGB CONC 33.1 % (32.0-36.0); MEAN PLATELET VOLUME 8.5 FL (7.0-11.0); MONOCYTE # 1.1 TH/MM3 (0-0.9); NEUT % 71.9 % (16.0-70.0); PLATELET COUNT 240 TH/MM3 (150-450); RED BLOOD COUNT 4.08 MIL/MM3 (4.00-5.30); RED CELL DISTRIBUTION WIDTH 13.2 % (11.6-17.2); WHITE BLOOD COUNT 11.9 TH/MM3 (4.0-11.0)
[2017-11-17 07:52] LABS: BICARBONATE 29.2 MEQ/L (21.0-32.0); CALCIUM 8.9 MG/DL (8.5-10.1); CREATININE 0.81 MG/DL (0.50-1.00); MAGNESIUM 2.3 MG/DL (1.5-2.5)
[2017-11-17 08:00] VITALS: BP 111/59; PULSE 65; PULSE 84; RESP 17; TEMP 97.4; O2SAT 99
[2017-11-17] MEDS: PRAVASTATIN SOD 20 MG TAB PO SCH (08:25)
[2017-11-17] MEDS: DOCUSATE SODIUM 50 MG/SENNA 8.6 MG TAB PO SCH (08:25)
[2017-11-17] MEDS: CALCIUM/VITAMIN D 250 MG/125 U TAB PO SCH ×3 (08:25→17:01)
[2017-11-17] MEDS: METOPROLOL TARTRATE 25 MG TAB PO SCH (08:25)
[2017-11-17] MEDS: SODIUM CHLORIDE 0.9% FLUSH 10 ML FLUSH IV FLUSH SCH (08:27)
[2017-11-17] MEDS: TIMOLOL MALEATE 0.5% OPHT SOLN 5 ML BTL EACH EYE SCH (08:28)
--- NOTE | 2017-11-17 10:53 | HHI.DCPOC ---
Discharge Care Plan Diagnosis: (1) Comminuted fracture of right patella Goals to Promote Your Health * To prevent worsening of your condition and complications * To maintain your health at the optimal level Directions to Meet Your Goals Take your medications as prescribed Follow your dietary instruction Follow activity as directed Keep your appointments as scheduled Take your immunizations and boosters as scheduled If your symptoms worsen call your PCP, if no PCP go to Urgent Care Center or Emergency Room Smoking is Dangerous to Your Health. Avoid second hand smoke Call the 24-hour hour crisis hotline for domestic abuse at Katina Nuñez Nov 17, 2017 10:53 Diogo Aguirre DO Nov 17, 2017 13:13
[2017-11-17] MEDS ORDERED: ENOXAPARIN SODIUM 30 MG/0.3 ML SYRINGE SQ SCH (11:00)
--- NOTE | 2017-11-17 11:04 | HHI.DS ---
Discharge Summary Admission Date Nov 15, 2017 at 21:25 Discharge Date: Nov 17, 2017 Admitting Diagnosis Comminuted patellar fracture, metatarsal fracture (1) Comminuted fracture of right patella Diagnosis: Principal ICD Codes: S82.041A - Displaced comminuted fracture of right patella, initial encounter for closed fracture Status: Acute (2) Fracture of fifth metatarsal bone of left foot Diagnosis: Principal ICD Codes: S92.352A - Displaced fracture of fifth metatarsal bone, left foot, initial encounter for closed fracture Status: Acute (3) SVT (supraventricular tachycardia) Diagnosis: Secondary ICD Codes: I47.1 - Supraventricular tachycardia Status: Chronic (4) Hyperlipemia Diagnosis: Secondary ICD Codes: E78.5 - Hyperlipidemia, unspecified Status: Chronic Consultants Dr. Stephenson, orthopedic surgery Procedures ORIF Right Patella 11/16/[address] Stephenson Brief History Is a 72-year-old woman presents emerged department after trip and fall. States she tripped over a parking curb and fell onto her right knee. She is severe pain in her right knee and some pain in her left foot as well. Denies hitting her head. No neck pain. She otherwise has been feeling generally well and healthy. She is a history of SVT, is on metoprolol. She is a history of hyperlipidemia. Otherwise has been feeling generally well and healthy. No other complaints . Xrays show rt patella fracture and 5th metatarsal fracture admit. CBC/BMP: 11/17/17 0624 11/17/17 0624 Significant Findings Laboratory Tests Test 11/15/17 21:55 11/17/17 06:24 White Blood Count 12.6 TH/MM3 (4.0-11.0) 11.9 TH/MM3 (4.0-11.0) Neutrophils (%) (Auto) 77.3 % (16.0-70.0) 71.9 % (16.0-70.0) Neutrophils # (Auto) 9.8 TH/MM3 (1.8-7.7) 8.6 TH/MM3 (1.8-7.7) Blood Urea Nitrogen 20 MG/DL (7-18) Random Glucose 109 MG/DL (74-106) Aspartate Amino Transf (AST/SGOT) 58 U/L (15-37) Estimat Glomerular Filtration Rate 59 ML/MIN (>89) 70 ML/MIN (>89) Monocytes (%) (Auto) 9.0 % (0.0-8.0) Monocytes # (Auto) 1.1 TH/MM3 (0-0.9) Imaging Last Impressions Knee X-Ray 11/16/17 0000 Signed Impressions: CONCLUSION: Good position and alignment on this postoperative view. Foot X-Ray 11/15/17 0000 Signed Impressions: CONCLUSION: Minimally displaced fracture through the base of the fifth metatarsal. PE at Discharge General: NAD, AAOx3 Chest: CTA Cardiac: Regular Abd: +BS, soft ND, suprapubic distension and tenderness Ext: RLE knee immobilizer in place, no swelling Hospital Course Comminuted right patellar fracture Left foot 5th metatarsal fracture - Pt is a 72 y/o female with SVT, Hyperlipidemia, GERD, gastroparesis, and fibromyalgia who presented to the ED after trip and fall. She had tripped over a parking curb and fell onto her right knee. - Imaging studies at admission revealed a right comminuted patellar fracture with joint effusion and a left foot minimally displaced fracture through the base of the fifth metatarsal. - Ortho was consulted at admission - patient is S/P ORIF right patella 11/16/[address] Stephenson - POD 1 per Orthopedic surgery -up to 50lbs wt with knee brace on -maintain brace at all times -no ROM, quad sets, leg lifts, strengthening -daily dressing changes POD 2 -CM for SNF placement -f/u with [facility] or [facility] in 2 weeks - IVF - Pain control with Dilaudid IV - Constipation precautions - Supportive care Fracture of fifth metatarsal bone of left foot - See above Hyperlipemia - Statin continued at admission SVT (supraventricular tachycardia) - Metoprolol 25mg po BID continued - advisory software engineer Pt Condition on Discharge: Stable Discharge Disposition: Discharge to SNF Discharge Instructions DIET: Follow Instructions for: As Tolerated, No Restrictions Activities you can perform: See Additionl Instruction Other Activity Instructions: -up to 50lbs wt with knee brace on -maintain brace at all times -no ROM, quad sets, leg lifts, strengthening Follow up Referrals: Orthopedics - 2 Weeks @ [facility] with Russel Stephenson MD PCP Follow-up - [address] Monahan New Medications: Calcium Carbonate-Vitamin D (Calcium 600+D 200) 600-200 Mg-Unit Tab 1 TAB PO BID for Nutritional Supplement, #60 TAB 0 Refills Cholecalciferol (Vitamin D3) 2,000 Unit Cap 2000 UNITS PO DAILY for Nutritional Supplement, #60 CAP 0 Refills Ergocalciferol (Ergocalciferol) 50,000 Unit Cap 07589 UNITS PO Q7D for Nutritional Supplement, #8 CAP Hydrocodone-Acetaminophen (Hydrocodone-Acetaminophen) 7.5 Mg-325 Mg Tab 1 TAB PO Q4H PRN for PAIN, #60 TAB 0 Refills Continued Medications: Coenzyme Q10 (Ubidecarenone) (Coq-10) 50 Mg Cap 100 MG PO Metoprolol Tartrate (Metoprolol Tartrate) 25 Mg Tab 25 MG PO BID, #60 TAB 0 Refills Pravastatin (Pravastatin) 20 Mg Tab 20 MG PO DAILY for Cholesterol Management, #30 TAB 0 Refills Timolol Opth Drops (Timolol Opth Drops) 0.5 % Soln 1 DROP EACH EYE BID for Glaucoma, #1 BOTTLE 0 Refills Additional Information Patient examined. Assessment and plan formulated with Katina Nuñez PA-C. I agree with the above. Pt appears stable. Pt's pain is controlled. Pt cleared by Orthopedic Service for discharge to SNF today. Katina Nuñez Nov 17, 2017 11:04 Diogo Aguirre DO Nov 17, 2017 13:15
[2017-11-17 12:00] VITALS: BP 104/50; PULSE 65; PULSE 84; RESP 18; TEMP 98.1; O2SAT 94
[2017-11-17] MEDS: LACTATED RINGER'S 1000 ML INJ 1,000 ML IV SCH (12:29)
[2017-11-17] MEDS ORDERED: MILKSUS PO (12:51)
[2017-11-17] MEDS ORDERED: COLA100C5 PO (12:51)
[2017-11-17 16:00] VITALS: PULSE 88
== END 2017-11-17 18:50 | DRG 516 ==
LOC: NEPD 19:27 → NEDA 21:25 → NEPGCP 23:38 → N06B 11-16 10:29
PROVIDERS: ADMIT Hospitalist; ATTEND Hospitalist
PROC: 0QSD04Z Reposition Right Patella with Internal Fixation Device, Open Approach (ICD-10-PCS; principal; 2017-11-16 10:12)
DX: S82.041A Displaced comminuted fracture of right patella, initial encounter for closed fracture (principal); I47.1 Supraventricular tachycardia; S92.351A Displaced fracture of fifth metatarsal bone, right foot, initial encounter for closed fracture; W01.0XXA Fall on same level from slipping, tripping and stumbling without subsequent striking against object, initial encounter; E78.5 Hyperlipidemia, unspecified
CPT/HCPCS: 73560; 73630; 76000; 80048; 80053; 83735; 85025; 93005; 94150; 96374; C1713; J0690; J1100; J1170; J1580; J1650; J2175; J2250; J2370; J2405; J3010; J3370; J7040; J7050; J7120; L1830; L3260